=== PATIENT | female | born 1955 | race Caucasian/White ===

== ENCOUNTER 2016-04-20 18:15 | Inpatient (IN) | payer SELFPAY ==
[~2016-04-20] VITALS: Ht 162.6 cm; Wt 62.4 kg
[~2016-04-20 18:15] MED LIST: CYCL-36 PO; GABA800T PO; GLUC1000 PO; LISI-363 PO; METF500 PO; METF500T PO; METF850T PO; VENL75XR PO
[2016-04-20 18:20] VITALS: BP 146/83; PULSE 107; RESP 20; TEMP 98.7; O2SAT 93
--- NOTE | 2016-04-20 18:29 | PD ---
HPI Chief Complaint: weakness Time Seen by Provider: 18:29 Travel History International Travel<30 days: No Contact w/Intl Traveler<30days: No History of Present Illness HPI 60-year-old female with history of hypertension and untreated DM presents to the ED via EMS for evaluation after an episode of weakness and fall while shopping today. Blood glucose over 600 as reported by EMS. Patient states that that she is prescribed metformin, however she's been unable to afford it so she's been "hoarding it." States that her weakness is resolved on presentation. She denies headache, dizziness, chest pain, palpitations, abdominal pain, nausea, vomiting. She endorses urinary urgency and occasional urge incontinence. She denies back pain, weakness of the extremities. No primary care provider. [facility] Past Medical History Anxiety: No Depression: Yes Heart Rhythm Problems: No Cancer: No Cardiovascular Problems: Yes (HTN) Diabetes: Yes Dialysis: Yes Genitourinary: No Hypertension: Yes Musculoskeletal: No Neurologic: No Psychiatric: Yes Reproductive: No Respiratory: No Menopausal: Yes Past Surgical History Endocrine Surgery: Yes (lymph node removal) Other Surgery: Yes Social History Alcohol Use: No Tobacco Use: Yes Substance Use: No Allergies-Medications (Allergen,Severity, Reaction): Coded Allergies: No Known Allergies (Verified , 02/20/15) Reported Meds & Prescriptions Reported Meds & Active Scripts Active Reported Gabapentin 800 Mg Tab 800 Mg PO TID Gabapentin 800 Mg Tab 800 Mg PO TID Glucophage (Metformin HCl) 500 Mg Tab 500 Mg PO BIDPC With meals Review of Systems Except as stated in HPI: all other systems reviewed are Neg Physical Exam Narrative GENERAL: Well-nourished, well-developed white female in no acute distress. SKIN: Warm and dry. HEAD: Normocephalic. EYES: No scleral icterus. No injection or drainage. NECK: Supple, trachea midline. No JVD or lymphadenopathy. CARDIOVASCULAR: Regular rate and rhythm without murmurs, gallops, or rubs. 2+ DP and radial pulses bilaterally. RESPIRATORY: Breath sounds clear and equal bilaterally. No accessory muscle use. GASTROINTESTINAL: Abdomen soft, non-tender, nondistended. Active bowel sounds. MUSCULOSKELETAL: No cyanosis, or edema. Patient is observed to walk with a normal gait. NEUROLOGICAL: Awake and alert. Cranial nerves II through XII intact. Motor and sensory grossly within normal limits. Five out of 5 muscle strength in all muscle groups. Normal speech. BACK: Nontender without obvious deformity. No CVA tenderness. Data Data Last Documented VS Vital Signs Date Time Temp Pulse Resp B/P Pulse Ox O2 Delivery O2 Flow Rate FiO2 04/20/16 20:03 104 18 117/65 96 Room Air 04/20/16 18:20 98.7 Orders Complete Blood Count With Diff (04/20/16 18:40) Comprehensive Metabolic Panel (04/20/16 18:40) Act Partial Throm Time (Ptt) (04/20/16 18:40) Prothrombin Time / Inr (Pt) (04/20/16 18:40) Magnesium (Mg) (04/20/16 18:40) Ckmb (Isoenzyme) Profile (04/20/16 18:40) Troponin I (04/20/16 18:40) Arterial Blood Gas (Abg) (04/20/16 18:40) Urinalysis - C+S If Indicated (04/20/16 18:40) Iv Access Insert/Monitor (04/20/16 18:40) Electrocardiogram (04/20/16 18:40) Ecg Monitoring (04/20/16 18:40) Oximetry (04/20/16 18:40) Oxygen Administration (04/20/16 18:40) Chest, Single Ap (04/20/16 18:40) Sodium Chloride 0.9% Flush (Ns Flush) (04/20/16 18:45) Blood Glucose (04/20/16 18:40) Beta Hydroxybutyrate (Acetone) (04/20/16 18:40) Phosphorus (Po4) (04/20/16 18:40) Sodium Chlor 0.9% 1000 Ml Inj (Ns 1000 M (04/20/16 18:45) Hemoglobin (Hgb) A1c (04/20/16 18:43) Insulin Human Regular Inj (Novolin R Inj (04/20/16 20:00) Labs Laboratory Tests Test 04/20/16 04/20/16 18:40 19:00 White Blood Count 7.6 TH/MM3 Red Blood Count 4.00 MIL/MM3 Hemoglobin 13.3 GM/DL Hematocrit 40.1 % Mean Corpuscular Volume 100.4 FL Mean Corpuscular Hemoglobin 33.2 PG Mean Corpuscular Hemoglobin 33.1 % Concent Red Cell Distribution Width 13.0 % Platelet Count 245 TH/MM3 Mean Platelet Volume 8.8 FL Neutrophils (%) (Auto) 70.9 % Lymphocytes (%) (Auto) 22.0 % Monocytes (%) (Auto) 6.1 % Eosinophils (%) (Auto) 0.2 % Basophils (%) (Auto) 0.8 % Neutrophils # (Auto) 5.4 TH/MM3 Lymphocytes # (Auto) 1.7 TH/MM3 Monocytes # (Auto) 0.5 TH/MM3 Eosinophils # (Auto) 0.0 TH/MM3 Basophils # (Auto) 0.1 TH/MM3 CBC Comment DIFF FINAL Differential Comment Prothrombin Time 9.4 SEC Prothromb Time International 0.9 RATIO Ratio Activated Partial 25.4 SEC Thromboplast Time Sodium Level 130 MEQ/L Potassium Level 3.8 MEQ/L Chloride Level 91 MEQ/L Carbon Dioxide Level 22.8 MEQ/L Anion Gap 16 MEQ/L Blood Urea Nitrogen 15 MG/DL Creatinine 1.22 MG/DL Estimat Glomerular Filtration 45 ML/MIN Rate Random Glucose 642 MG/DL Calcium Level 8.1 MG/DL Phosphorus Level 3.2 MG/DL Magnesium Level 2.0 MG/DL Total Bilirubin 0.3 MG/DL Aspartate Amino Transf 23 U/L (AST/SGOT) Alanine Aminotransferase 20 U/L (ALT/SGPT) Alkaline Phosphatase 163 U/L Total Creatine Kinase 89 U/L Troponin I LESS THAN 0.02 NG/ML Total Protein 6.7 GM/DL Albumin 3.3 GM/DL B-Hydroxybutyrate 0.41 MMOL/L Urine Color LIGHT-YELLOW Urine Turbidity CLEAR Urine pH 5.0 Urine Specific [place] 1.024 Urine Protein NEG mg/dL Urine Glucose (UA) 1000 mg/dL Urine Ketones NEG mg/dL Urine Occult Blood NEG Urine Nitrite NEG Urine Bilirubin NEG Urine Urobilinogen LESS THAN 2.0 MG/DL Urine Leukocyte Esterase SMALL Urine RBC 2 /hpf Urine WBC 1 /hpf Urine Squamous Epithelial 1 /hpf Cells Microscopic Urinalysis Comment CULT NOT INDICATED MDM Medical Decision Making Medical Screen Exam Complete: Yes Emergency Medical Condition: Yes Differential Diagnosis Hyperglycemia versus DKA versus metabolic acidosis versus UTI versus electrolyte abnormality versus other Narrative Course 60-year-old female with history of hypertension and untreated DM presents to the ED via EMS for evaluation after an episode of weakness and fall while shopping today. Blood glucose over 600 as reported by EMS. Endorses urinary urgency and occasional urge incontinence. Patient denies headache, dizziness, chest pain, palpitations, abdominal pain, nausea, vomiting, back pain, weakness of the extremities. States that she does not have a PCP, has been "hoarding" her metformin. Patient was administered 1 L normal saline en route. Vitals reviewed. Pulse 104, respiratory rate 20, pulse ox 93% on room air on presentation. Physical exam reveals a nontoxic-appearing white female in no acute distress. No extra work of breathing. Chest clear to auscultation bilaterally. Abdomen soft, nontender. No edema in the lower extremities. IV was established. Patient was placed on continuous monitoring. She is administered a liter normal saline. CBC: WBC 7.6. Hemoglobin 13.3. INR 0.9. CMP: Sodium 1:30, chloride 99. Creatinine 1.22. Potassium 3.8. Glucose 642. Calcium 8.1. Anion gap 16 Beta Hydroxybutyrate: 0.41. Cardiac enzymes negative. UA no culture indicated ABG: Pending EKG rate 105, sinus tachycardia. ID interval 156, QRS 79, QTc 398. Normal axis. No ischemic changes. Reviewed by Dr. Bruner. Chest x-ray shows possible nodule in the left infrahilar region. CT recommended by radiology. Patient was administered 10 units of insulin IV. Recheck blood glucose ordered. She'll be admitted to the medicine service for further evaluation. Spoke with the patient regarding this plan and she is agreeable. I spoke to Dr. Cid who agrees to accept this medicine to the medicine service. Please medicine notes for disposition. Diagnosis Primary Impression: Hyperglycemia due to type 2 diabetes mellitus Qualified Code: E11.65 - Type 2 diabetes mellitus with hyperglycemia, without long-term current use of insulin Additional Impression: Pulmonary nodule Danni Espino Apr 20, 2016 18:29
[2016-04-20 18:30] VITALS: O2SAT 96
[2016-04-20] MEDS ORDERED: SODIUM CHLORIDE 0.9% FLUSH 5 ML FLUSH IVF PRN (18:45)
[2016-04-20] MEDS ORDERED: SODIUM CHLOR 0.9% 1000 ML INJ 1,000 ML IV ONE (18:45)
[2016-04-20] MEDS ORDERED: GABA800T PO ×2 (18:54→18:55)
[2016-04-20] MEDS ORDERED: VENL75XR PO (18:54)
[2016-04-20] MEDS ORDERED: METF500 PO (18:54)
[2016-04-20 19:02] LABS: AUTOMATED NEUTROPHIL # 5.4 TH/MM3 (1.8-7.7); BASOPHIL # 0.1 TH/MM3 (0-0.2); BASOPHIL % 0.8 % (0.0-2.0); EOSINOPHIL % 0.2 % (0.0-4.0); HEMATOCRIT 40.1 % (35.0-46.0); HEMO FLAGS DIFF FINAL; LYMPHOCYTE # 1.7 TH/MM3 (1.0-4.8); MEAN CELL VOLUME 100.4 FL (80.0-100.0); MEAN CORPUSCULAR HEMOGLOBIN 33.2 PG (27.0-34.0); MEAN CORPUSCULAR HGB CONC 33.1 % (32.0-36.0); MONO % 6.1 % (0.0-8.0); NEUT % 70.9 % (16.0-70.0); PLATELET COUNT 245 TH/MM3 (150-450); WHITE BLOOD COUNT 7.6 TH/MM3 (4.0-11.0)
[2016-04-20 19:16] LABS: APTT (PATIENT) 25.4 SEC (24.3-30.1); INTERNATIONAL NORMALIZED RATIO 0.9 RATIO; PROTHROMBIN TIME - PATIENT 9.4 SEC (9.8-11.6)
[2016-04-20 19:22] LABS: BLOOD, URINE NEG (NEG); GLUCOSE,URINE 1000 mg/dL (NEG); KETONE, URINE NEG (NEG); NITRITE,URINE NEG (NEG); SQUAMOUS EPITHELIAL CELL URINE 1 /hpf (0-5); URINE COLOR LIGHT-YELLOW (YELLW/STRAW)
[2016-04-20 19:24] LABS: COMMENT (UR) CULT NOT INDICATED; CULTURE IF INDICATED CULT NOT INDICATED
[2016-04-20 19:40] LABS: ALKALINE PHOSPHATASE 163 U/L (45-117); ALT (GPT) 20 U/L (10-53); ANION GAP 16 MEQ/L (5-15); AST (GOT) 23 U/L (15-37); BETA-HYDROXYBUTYRATE 0.41 MMOL/L (0.00-0.39); BICARBONATE 22.8 MEQ/L (21.0-32.0); BLOOD UREA NITROGEN 15 MG/DL (7-18); CHLORIDE 91 MEQ/L (98-107); CREATINE KINASE 89 U/L (26-192); GLOMERULAR FILTRATION RATE 45 ML/MIN (>89); POTASSIUM 3.8 MEQ/L (3.5-5.1); SODIUM (NA) 130 MEQ/L (136-145); TOTAL BILIRUBIN ADULT 0.3 MG/DL (0.2-1.0)
--- NOTE | 2016-04-20 19:58 | RADRPT ---
EXAM DATE/TIME: 04/20/2016 17:18 [place] COMPARISON: CT THORAX W/O CONTRAST, July 24, 2014, 22:59. INDICATIONS : Patient has been short of breath since yesterday. MEDICAL HISTORY : Diabetes mellitus type II. SURGICAL HISTORY : None. ENCOUNTER: Initial ACUITY: 1 day PAIN SCORE: 0/10 LOCATION: Bilateral chest FINDINGS: There is a possible nodule in the left infrahilar region. Further evaluation with noncontrast chest C T recommended. Calcified azygos lymph node noted. No effusion. Heart size normal. CONCLUSION: 1. Possible nodule left infrahilar region. Further evaluation with noncontrast chest CT recommended. Lucio Joseph MD on April 20, 2016 at 19:54 Board Certified Radiologist. This report was verified electronically.
[2016-04-20] MEDS ORDERED: INSULIN HUMAN REGULAR 1,000 UNITS/10 ML VIAL IV PUSH ONE (20:00)
[2016-04-20 20:03] VITALS: BP 117/65; PULSE 104; RESP 18; O2SAT 96
[2016-04-20 21:04] VITALS: BP 111/67; PULSE 108; RESP 18; O2SAT 97
[2016-04-20 22:04] LABS: HEMOGLOBIN A1a 1.9 %; HEMOGLOBIN A1b 1.2 %; HEMOGLOBIN F 2.5 %
[2016-04-20 22:05] LABS: HEMOGLOBIN Ao 70.3 %; HEMOGLOBIN LA1C 5.6 %; HEMOGLOBIN P3 6.4 %
[2016-04-20] MEDS ORDERED: SODIUM CHLOR 0.9% 1000 ML INJ 1,000 ML IV SCH (22:57)
[2016-04-20] MEDS ORDERED: DEXT 5%-NACL 0.9% 1000 ML INJ 1,000 ML IV SCH (22:57)
[2016-04-20] MEDS ORDERED: MISCELLANEOUS NURSING INFORMATION XX SCH (23:00)
[2016-04-20] MEDS ORDERED: NALOXONE HCL 0.4 MG/ML AMP IV PRN (23:00)
[2016-04-20] MEDS ORDERED: INSULIN REGULAR (IV INFUSION) 100 UNITS in SODIUM CHLORIDE 0.9% INJ 99 ML IV SCH (23:00)
[2016-04-20] MEDS ORDERED: POTASSIUM CHLOR 20 MEQ PREMIX 100 ML IV PRN ×6 (23:00)
[2016-04-20] MEDS ORDERED: ACETAMINOPHEN 325 MG TAB PO PRN (23:00)
[2016-04-20] MEDS ORDERED: SENNOSIDES 8.6 MG TAB PO PRN (23:00)
[2016-04-20] MEDS ORDERED: POTASSIUM CHLOR 40 MEQ PREMIX 100 ML IV PRN ×2 (23:00)
[2016-04-20] MEDS ORDERED: ONDANSETRON HCL 4 MG/2 ML VIAL IVP PRN (23:00)
[2016-04-20] MEDS ORDERED: SODIUM BICARBONATE 8.4% SOLN 50 MEQ/50 ML VIAL IV PRN ×2 (23:00)
[2016-04-20] MEDS ORDERED: CHLORHEXIDINE GLUCONATE 2 % 1 PACK (2 CLOTHS) TOP PRN (23:00)
[2016-04-20] MEDS ORDERED: SODIUM CHLORIDE 0.9% FLUSH 5 ML FLUSH FLUSH PRN (23:00)
[2016-04-20] MEDS ORDERED: SODIUM PHOSPHATE INJ 15 MMOL in SODIUM CHLORIDE 0.9% INJ 100 ML IV PRN (23:00)
[2016-04-21] VITALS (10 sets, daily range): BP systolic 131–176; BP diastolic 63–92; PULSE 75–98; RESP 16–20; TEMP 97.7–98.7; O2SAT 92–98
[2016-04-21] MEDS: ENOXAPARIN SODIUM 40 MG/0.4 ML SYRINGE SQ SCH ×2 (00:01→22:22)
--- NOTE | 2016-04-21 00:45 | HHI.HP ---
[facility] Service [place] [facility] Primary Care Physician Bobo Guajardo MD Admission Diagnosis hyperglycemia, pulmonary nodule Diagnoses: (1) Type 2 diabetes mellitus (2) Diabetic ketoacidosis (3) Suicidal ideation (4) Neuropathy (5) Hypertension Chief Complaint: Weakness Travel History International Travel<30 Days: No Contact w/Intl Traveler <30 Da: No Traveled to Known Affected Are: No History of Present Illness Ms. Plasencia is a 60-year-old female with a past medical history of hypertension and type 2 diabetes mellitus who presented to the hospital complaining of weakness since this morning. She stated that she has been sober for 2 weeks and began drinking alcohol this morning again. She states her surgery has been "out of whack" since February 2016. She was taking her medications on and off. She states that she sees Dr. Guajardo (last visit in EMR is 11/28/2014). She denies nausea, chest pain, abdominal pain, but reports a little bit of nausea without vomiting. She was able to eat today at [facility]. She reports getting very lightheaded and having some feet cramps along with excessive thirst. She denies diarrhea, fever, chills. She reports cough but no worse than usual. She reports that she tends to have suicidal thoughts when she is off antidepressants; she is currently off antidepressants; she denies having a suicidal plan. She reports financial constraints causing her to be unable to afford her medications. Review of Systems Constitutional: COMPLAINS OF: Dizziness, DENIES: Fever Endocrine: COMPLAINS OF: Polydipsia, Polyuria Ears, nose, mouth, throat: DENIES: Nasal discharge, Throat pain Respiratory: COMPLAINS OF: Cough, DENIES: Shortness of breath Cardiovascular: DENIES: Chest pain, Lower Extremity Edema Gastrointestinal: COMPLAINS OF: Nausea, DENIES: Abdominal pain, Vomiting Genitourinary: DENIES: Hematuria, Dysuria Musculoskeletal: COMPLAINS OF: Muscle aches, DENIES: Stiffness Neurologic: COMPLAINS OF: Seizures, DENIES: Localized weakness Psychiatric: COMPLAINS OF: Anxiety, Depression Past Family Social History Past Medical History Hypertension T2DM Neuropathy Anxiety Depression . Past Surgical History Denies surgeries . Reported Medications Reported Meds & Active Scripts Active Reported Gabapentin 800 Mg Tab 800 Mg PO TID Glucophage (Metformin HCl) 500 Mg Tab 500 Mg PO BIDPC With meals . Allergies: Coded Allergies: No Known Allergies (Verified , 02/20/15) Active Ordered Medications Current Medications IV Flush 2 ml 2 ml UNSCH PRN IVF FLUSH AFTER USING IV ACCESS; Start 04/20/16 at 18:45 Sodium Chloride (NS 1000 ml Inj) 1,000 ml @ 999 mls/hr BOLUS ONCE IV Last administered on 04/20/16 19:23; Start 04/20/16 at 18:45; Stop 04/20/16 at 19:45; Status DC Insulin Human Regular (NovoLIN R INJ) 10 units ONCE ONCE IV PUSH Last administered on 04/20/16 20:02; Start 04/20/16 at 20:00; Stop 04/20/16 at 20:01; Status DC IV Flush (NS Flush) 2 ml UNSCH PRN FLUSH FLUSH AFTER USING IV ACCESS; Start 04/20/16 at 23:00 IV Flush (NS Flush) 2 ml BID FLUSH ; Start 04/21/16 at 09:00 Acetaminophen (Tylenol) 650 mg Q4H PRN PO TEMP > 100.4; Start 04/20/16 at 23:00 Ondansetron HCl (Zofran Inj) 4 mg Q6H PRN IVP NAUSEA OR VOMITING; Start at 23:00 Sennosides (Senokot) 17.2 mg Q12H PRN PO CONSTIPATION; Start 04/20/16 at 23:00 Enoxaparin Sodium (Lovenox Inj) 40 mg Q24H SQ Last administered on 04/21/16 00: 01; Start 04/20/16 at 23:00 Naloxone HCl 0.4 mg 0.4 mg UNSCH PRN IV SEE LABEL COMMENTS; Start 04/20/16 at 23 :00 Sodium Chloride 1,000 ml @ 250 mls/hr Q4H IV Last administered on 04/21/16 00: 01; Start 04/20/16 at 22:57 Dextrose/Sodium Chloride 1,000 ml @ 200 mls/hr Q5H IV ; Start 04/20/16 at 22:57 Insulin Human Regular 100 units/ Sodium Chloride 100 ml @ 0 mls/hr TITRATE IV Last administered on 04/21/16t 00:01; Start 04/20/16 at 23:00 Potassium Chloride 100 ml @ 100 mls/hr Q1H PRN IV SEE LABEL COMMENTS; Start at 23:00 Potassium Chloride 100 ml @ 50 mls/hr Q2H PRN IV SEE LABEL COMMENTS; Start 04/20/16 at 23:00 Potassium Chloride 100 ml @ 100 mls/hr Q1H PRN IV SEE LABEL COMMENTS; Start at 23:00 Potassium Chloride 100 ml @ 100 mls/hr Q1H PRN IV SEE LABEL COMMENTS; Start at 23:00 Potassium Chloride 100 ml @ 50 mls/hr Q2H PRN IV SEE LABEL COMMENTS; Start 04/20/16 at 23:00 Potassium Chloride 100 ml @ 50 mls/hr Q2H PRN IV SEE LABEL COMMENTS; Start 04/20/16 at 23:00 Potassium Chloride 100 ml @ 50 mls/hr Q2H PRN IV SEE LABEL COMMENTS; Start 04/20/16 at 23:00 Potassium Chloride (KCl 20 Meq Premix Inj) 100 ml @ 50 mls/hr Q2H PRN IV SEE LABEL COMMENTS; Start 04/20/16 at 23:00 Sodium Bicarbonate (Sodium Bicarbonate 8.4% Inj) 100 meq UNSCH PRN IV SEE LABEL COMMENTS; Start 04/20/16 at 23:00 Sodium Bicarbonate 50 meq 50 meq UNSCH PRN IV SEE LABEL COMMENTS; Start at 23:00 Sodium Phosphate/ Sodium Chloride (Sodium Phosphate Inj/NS Inj) 105 ml @ 25 mls /hr UNSCH PRN IV SEE LABEL COMMENTS; Start 04/20/16 at 23:00 Miscellaneous Information 1 [id number] XX ; Start 04/20/16 at 23:00 Chlorhexidine Gluconate (Chlorhexidine 2% Cloth) 3 pack Taper DAILY@04 TOP ; Start 04/21/16 at 04:00; Stop 04/17/17 at 03:59 Chlorhexidine Gluconate (Chlorhexidine 2% Cloth) 3 pack UNSCH PRN TOP HYGIENIC CARE; Start 04/20/16 at 23:00 Gabapentin (Neurontin) 800 mg TID PO ; Start 04/21/16 at 09:00 . Family History Father age 42 from [place] - heavy smoker Mother age 92 . Social History Tobacco: 1 PPD Alcohol: history of alcohol abuse; sober x 2 weeks before today Physical Exam Vital Signs Vital Signs Date Time Temp Pulse Resp B/P Pulse Ox O2 Delivery O2 Flow Rate FiO2 04/21/16 00:02 98 16 131/72 98 Room Air 04/20/16 21:04 108 18 111/67 97 Room Air 04/20/16 20:03 104 18 117/65 96 Room Air 04/20/16 18:39 Room Air 04/20/16 18:30 96 04/20/16 18:30 96 04/20/16 18:20 98.7 107 20 146/83 93 Physical Exam GENERAL: This is a pleasant, cooperative patient, in no apparent distress. SKIN: No rashes, ecchymoses or lesions. Cool and dry. HEAD: Atraumatic. Normocephalic. EYES: Pupils equal round and reactive. No scleral icterus. No injection or drainage. ENT: Nose without bleeding, purulent drainage. Airway patent. NECK: Trachea midline. No JVD or lymphadenopathy. Supple, nontender, no meningeal signs. CARDIOVASCULAR: Regular rate and rhythm without murmurs, gallops, or rubs. RESPIRATORY: Clear to auscultation. Breath sounds equal bilaterally. No wheezes , rales, or rhonchi. GASTROINTESTINAL: Abdomen soft, non-tender, nondistended. No guarding. MUSCULOSKELETAL: Extremities without clubbing, cyanosis, or edema. No calf tenderness. NEUROLOGICAL: Awake and alert. Motor and sensory grossly within normal limits. Normal speech. Laboratory Laboratory Tests Test 04/20/16 04/20/16 18:40 19:00 White Blood Count 7.6 Red Blood Count 4.00 Hemoglobin 13.3 Hematocrit 40.1 Mean Corpuscular Volume 100.4 Mean Corpuscular Hemoglobin 33.2 Mean Corpuscular Hemoglobin 33.1 Concent Red Cell Distribution Width 13.0 Platelet Count 245 Mean Platelet Volume 8.8 Neutrophils (%) (Auto) 70.9 Lymphocytes (%) (Auto) 22.0 Monocytes (%) (Auto) 6.1 Eosinophils (%) (Auto) 0.2 Basophils (%) (Auto) 0.8 Neutrophils # (Auto) 5.4 Lymphocytes # (Auto) 1.7 Monocytes # (Auto) 0.5 Eosinophils # (Auto) 0.0 Basophils # (Auto) 0.1 CBC Comment DIFF FINAL Differential Comment Prothrombin Time 9.4 Prothromb Time International 0.9 Ratio Activated Partial 25.4 Thromboplast Time Sodium Level 130 Potassium Level 3.8 Chloride Level 91 Carbon Dioxide Level 22.8 Anion Gap 16 Blood Urea Nitrogen 15 Creatinine 1.22 Estimat Glomerular Filtration 45 Rate Random Glucose 642 Hemoglobin A1c 12.2 Calcium Level 8.1 Phosphorus Level 3.2 Magnesium Level 2.0 Total Bilirubin 0.3 Aspartate Amino Transf 23 (AST/SGOT) Alanine Aminotransferase 20 (ALT/SGPT) Alkaline Phosphatase 163 Total Creatine Kinase 89 Troponin I LESS THAN 0.02 Total Protein 6.7 Albumin 3.3 B-Hydroxybutyrate 0.41 Urine Color LIGHT-YELLOW Urine Turbidity CLEAR Urine pH 5.0 Urine Specific [place] 1.024 Urine Protein NEG Urine Glucose (UA) 1000 Urine Ketones NEG Urine Occult Blood NEG Urine Nitrite NEG Urine Bilirubin NEG Urine Urobilinogen LESS THAN 2.0 Urine Leukocyte Esterase SMALL Urine RBC 2 Urine WBC 1 Urine Squamous Epithelial 1 Cells Microscopic Urinalysis Comment CULT NOT INDICATED Result Diagram: 04/20/16183904/20/161839 Imaging Last Impressions Chest X-Ray 04/20/161839 Signed Impressions: Service Date/Time: Wednesday, April 20, 2016 17:18 - CONCLUSION: 1. Possible nodule left infrahilar region. Further evaluation with noncontrast chest CT recommended. Lucio Joseph MD . Assessment and Plan Problem List: (1) Diabetic ketoacidosis ICD Code: E13.10 Status: Acute (2) Type 2 diabetes mellitus ICD Code: E11.9 Status: Chronic (3) Suicidal ideation ICD Code: R45.851 Status: Acute (4) Neuropathy ICD Code: G62.9 Status: Chronic (5) Hypertension ICD Code: I10 Status: Chronic Assessment and Plan T2DM DKA - Initially started on an insulin drip the patient's blood sugar quickly corrected and anion gap closed - Accu-Cheks before meals and at bedtime with low-dose sliding scale coverage - Hold metformin for now in case contrast images needed - Monitor trends in blood glucose levels and adjust medications accordingly - Hypoglycemia protocol ordered Suicidal Ideation - Sitter at bedside - Consult psychiatry Neuropathy - will need to verify Gabapentin dose - if she is not able to afford medications ; it is unlikely that she is taking this medicine currently Hypertension - Enalapril 1.25 mg IV q6h PRN BP > 160/100 - monitor bp reading - Adjust medications as indicated Written by Brunilda Cuba, acting as scribe for Dr. Cid on 04/21/16 at 00:45. The documentation accurately reflects the work performed [id number] by me on 04/21/16 at 00:45. Discussed Condition With patient, ER physician Physician Certification 2 Midnight Certification Type: Admission for Inpatient Services Order for Inpatient Services The services are ordered in accordance with Medicare regulations or non- Medicare payer requirements, as applicable. In the case of services not specified as inpatient-only, they are appropriately provided as inpatient services in accordance with the 2-midnight benchmark. Estimated LOS (days): 3 days is the estimated time the patient will need to remain in the hospital, assuming treatment plan goals are met and no additional complications. Post-Hospital Plan: Home Problem Qualifiers (1) Diabetic ketoacidosis: Brunilda Cuba Apr 21, 2016 00:45 Tre Novoa MD Apr 27, 2016 23:14
[2016-04-21] MEDS ORDERED: GLUCAGON 1 MG/ML VIAL OTHER PRN (03:00)
[2016-04-21] MEDS ORDERED: DEXTROSE 50% IN WATER 50 ML VIAL(D50) IV PUSH PRN (03:00)
[2016-04-21] MEDS ORDERED: CHLORHEXIDINE GLUCONATE 2 % 1 PACK (2 CLOTHS) TOP SCH (04:00)
--- NOTE | 2016-04-21 04:57 | EKG ---
Date Performed: 04/20/2016 Time Performed: 19:30:15 PTAGE: 60 years EKG: SINUS TACHYCARDIA ABNORMAL RHYTHM ECG COMPARED TO PRIOR ELECTROCARDIOGRAM, Rate has increas ed. PREVIOUS TRACING : 07/24/2014 14.43 DOCTOR: Malcolm Elizabeth Interpretating Date/Time 04/21/2016 04:56:20
[2016-04-21 05:18] LABS: AUTOMATED NEUTROPHIL # 4.4 TH/MM3 (1.8-7.7); BASOPHIL % 0.5 % (0.0-2.0); EOSINOPHIL # 0.1 TH/MM3 (0-0.4); EOSINOPHIL % 0.7 % (0.0-4.0); HEMO FLAGS DIFF FINAL; LYMPH % 29.8 % (9.0-44.0); LYMPHOCYTE # 2.1 TH/MM3 (1.0-4.8); MEAN CELL VOLUME 96.8 FL (80.0-100.0); MEAN CORPUSCULAR HEMOGLOBIN 33.2 PG (27.0-34.0); MEAN CORPUSCULAR HGB CONC 34.3 % (32.0-36.0); MONO % 7.4 % (0.0-8.0); NEUT % 61.6 % (16.0-70.0); PLATELET COUNT 182 TH/MM3 (150-450); RED BLOOD COUNT 3.52 MIL/MM3 (4.00-5.30); RED CELL DISTRIBUTION WIDTH 12.8 % (11.6-17.2); WHITE BLOOD COUNT 7.2 TH/MM3 (4.0-11.0)
[2016-04-21 05:55] LABS: BETA-HYDROXYBUTYRATE 1.7 MMOL/L (0.00-0.39); BICARBONATE 26.6 MEQ/L (21.0-32.0); MAGNESIUM 1.7 MG/DL (1.5-2.5); POTASSIUM 3.9 MEQ/L (3.5-5.1)
[2016-04-21] MEDS: INSULIN ASPART SUPPLEMENTAL SCALE SQ SCH ×4 (06:15→22:23)
[2016-04-21] MEDS ORDERED: GABAPENTIN 400 MG CAP PO SCH ×2 (09:00)
[2016-04-21] MEDS ORDERED: GABAPENTIN 300 MG CAP PO SCH (09:00)
[2016-04-21] MEDS ORDERED: ENALAPRILAT 1.25 MG/ML VIAL IV PRN (09:00)
[2016-04-21] MEDS ORDERED: LORazepam 2 MG/ML VIAL IV PUSH PRN ×4 (10:00)
[2016-04-21] MEDS ORDERED: LORazepam 1 MG TAB PO PRN (10:00)
[2016-04-21] MEDS ORDERED: LORazepam 2 MG TAB PO PRN (10:00)
[2016-04-21] MEDS ORDERED: FLUMAZENIL 0.5 MG/5 ML VIAL IV PUSH PRN (10:00)
[2016-04-21] MEDS: SODIUM CHLORIDE 0.9% FLUSH 5 ML FLUSH FLUSH SCH ×2 (11:12→22:22)
[2016-04-21] MEDS: VENLAFAXINE HCL XR 75 MG CAP PO SCH (11:12)
--- NOTE | 2016-04-21 12:35 | HHI.PR ---
Addendum to Inpatient Note Addendum Reason: Additional Documentation Additional Information Ms Plasencia is feeling physically better this am and her glucose levels are better as well. She has "been going downhill" over the past year and especially over the past few months. She has a history of DM, depression and alcohol binges and lost her Insurance so she could not afford her clinic visits and was unable to refill her antidepressant for the past month as well as her metformin and gabapentin. She is more and more depressed and "doesn't care about anything". She stated she was on a 2 day binge from Monday to Monday when she was admitted. She reported drinking about a pint of vodka and that she is not a heavy daily drinker but binges for 2-3 days every few weeks. She has noticed her overall glucose control worsening though she does not check her glucoses at home. She reports worsening numbness in her feet and that she was walking yesterday when she fell though she denies loss of consciousness. She was intoxicated at the time. She denies a past history of alcohol withdrawal seizures but has had some withdrawal sxs in the past of morning shakiness and has taken an "eyeopener" of a morning drink at times. She does report polyuria and polydipsia as well. When she presented to the ED, she was found to have elevated glucose of over 600 and a positive beta hydroxybutyrate. She was diagnosed with DKA and sent to the ICU. However, after a liter bolus of fluid, and a little insulin she had a rapid decline in her glucose to what is probably her normal of 200s. (Her HbA1C is over 12.) She is complaining of depression because she has no Effexor. She wishes to be out of the ICU as she feels better today. She denies any pain or localized sxs from her fall suggestive of a fracture or other injury. agree with exam of H&P per hospitalist. Pt transferred to FP service as Dr Guajardo is her primary care Jelena Colunga MD Apr 21, 2016 12:35
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
[2016-04-21] MEDS ORDERED: traZODone HCL 50 MG TAB PO SCH (21:00)
[2016-04-22 00:18] VITALS: BP 133/73; PULSE 62; RESP 16; TEMP 97.2; O2SAT 99
[2016-04-22 05:30] VITALS: BP 154/90; PULSE 63; RESP 16; TEMP 99.5; O2SAT 97
[2016-04-22] MEDS: INSULIN ASPART SUPPLEMENTAL SCALE SQ SCH (06:13)
[2016-04-22 08:00] VITALS: BP 113/68; PULSE 79; RESP 18; TEMP 97.4; O2SAT 96
[2016-04-22 08:24] LABS: HEMATOCRIT 37.1 % (35.0-46.0); MEAN CELL VOLUME 95.3 FL (80.0-100.0); MEAN CORPUSCULAR HEMOGLOBIN 32.9 PG (27.0-34.0); MEAN CORPUSCULAR HGB CONC 34.5 % (32.0-36.0); PLATELET COUNT 187 TH/MM3 (150-450); RED BLOOD COUNT 3.89 MIL/MM3 (4.00-5.30); RED CELL DISTRIBUTION WIDTH 12.7 % (11.6-17.2); REVIEW FLAG FINAL; WHITE BLOOD COUNT 4.4 TH/MM3 (4.0-11.0)
[2016-04-22 08:48] LABS: ALT (GPT) 17 U/L (10-53); ANION GAP 8 MEQ/L (5-15); AST (GOT) 15 U/L (15-37); BICARBONATE 27.3 MEQ/L (21.0-32.0); BLOOD UREA NITROGEN 12 MG/DL (7-18); CHLORIDE 101 MEQ/L (98-107); GLOMERULAR FILTRATION RATE 87 ML/MIN (>89); POTASSIUM 3.6 MEQ/L (3.5-5.1); SODIUM (NA) 136 MEQ/L (136-145)
[2016-04-22 08:49] LABS: ALKALINE PHOSPHATASE 106 U/L (45-117); TOTAL BILIRUBIN ADULT 0.5 MG/DL (0.2-1.0)
[2016-04-22] MEDS ORDERED: METF500 PO (09:14)
[2016-04-22] MEDS ORDERED: TRAZ50TA12 PO (09:14)
[2016-04-22] MEDS ORDERED: VENL75XR PO (09:14)
[2016-04-22] MEDS ORDERED: LEVEMIR SQ (09:14)
[2016-04-22] MEDS ORDERED: BLOOD GLUCOSE T1 TES (09:16)
[2016-04-22] MEDS ORDERED: BLOOD GLUCOSE M1 KIT (09:16)
[2016-04-22] MEDS: VENLAFAXINE HCL XR 75 MG CAP PO SCH (09:35)
[2016-04-22] MEDS: SODIUM CHLORIDE 0.9% FLUSH 5 ML FLUSH FLUSH SCH (09:36)
[2016-04-22] MEDS ORDERED: INSULIN DETEMIR 100 UNITS/ML VIAL SQ SCH (10:00)
--- NOTE | 2016-04-22 11:18 | HHI.FPPN ---
Subjective Remarks Patient seen and examined. No acute events overnight. VSSAF. Patient denies any complaints this morning. Had a good night's sleep with Trazadone. Mood has improved. Denies SI/HI. As for her BG, it still ranges from 213-346 overnight. She received 17 units of SSI. Serum glucose is 160 this morning. Denies abdominal pain, nausea, vomiting, or other complaints. Tolerating diet. (Iram Santiago MD R3) Objective Vitals Vital Signs Date Time Temp Pulse Resp B/P Pulse Ox O2 Delivery O2 Flow Rate FiO2 04/22/16 08:00 97.4 79 18 113/68 96 04/22/16 05:30 99.5 63 16 154/90 97 04/22/16 00:18 97.2 62 16 133/73 99 04/21/16 21:21 97.7 79 16 168/92 97 04/21/16 15:54 98.7 84 16 176/89 98 04/21/16 12:00 86 I/O 04/21/16 04/21/16 04/21/16 04/22/16 04/22/16 04/22/16 07:00 15:00 23:00 07:00 15:00 23:00 Intake Total 0 ml 240 ml Balance 0 ml 240 ml Intake Oral 0 ml 240 ml # Voids 1 3 # Bowel Movements 0 0 (Iram Santiago MD R3) Result Diagram: 04/22/16 0735 04/22/16 0735 Imaging Last Impressions Chest X-Ray 04/20/16 1840 Signed Impressions: Service Date/Time: Wednesday, April 20, 2016 17:18 - CONCLUSION: 1. Possible nodule left infrahilar region. Further evaluation with noncontrast chest CT recommended. Lucio Joseph MD Objective Remarks GENERAL: This is a pleasant, cooperative patient, in no apparent distress. SKIN: No rashes, ecchymoses or lesions. Cool and dry. HEAD: Atraumatic. Normocephalic. EYES: Pupils equal round and reactive. No scleral icterus. No injection or drainage. ENT: Nose without bleeding, purulent drainage. Airway patent. NECK: Trachea midline. No lymphadenopathy. Supple CARDIOVASCULAR: Regular rate and rhythm without murmurs, gallops, or rubs. RESPIRATORY: Clear to auscultation. Breath sounds equal bilaterally. No wheezes , rales, or rhonchi. GASTROINTESTINAL: Abdomen soft, non-tender, nondistended. No guarding. Active bowel sounds MUSCULOSKELETAL: Extremities without clubbing, cyanosis, or edema. No calf tenderness. NEUROLOGICAL: Awake and alert. Motor and sensory grossly within normal limits. Normal speech. PSYCH: Seems less depressed today. Not tearful. Smiles during conversation. Affect appropriate. (Iram Santiago MD R3) A/P Assessment and Plan Ms. Plasencia is a 60-year-old female with a past medical history of hypertension and uncontrolled type 2 diabetes mellitus who was admitted for hyperglycemia ( DKA vs. HHS) and Morales acted for suicidal ideation. Blood glucose has improved during hospitalization. Electrolytes are WNL. Will start basal insulin for sugar control. Psychiatry was consulted and recommended resuming Effexor and adding Trazodone for her depression. Mood is improved with that regimen. Denies SI/HI. Morales act lifted per psych. Patient is clinically stable and is ready for discharge home. Discharge Planning Clinically stable. Will discharge home today. Patient does not have insurance and will need close follow up for her diabetes and depression. CM is on board to assist with discharge planning (patient's assistance with medications and f/ u at community clinic) d/w Dr. Gracia (Iram Santiago MD R3) Attending Attestation Patient seen and examined. Case reviewed and discussed with the resident team. Agree with plan of care as discussed with me and documented in the resident note. pt eager to go home. feels she learned so much from her diabetic teaching ! (Basil,Jelena Henley MD) Problem List: (1) Hyperglycemia due to type 2 diabetes mellitus Status: Acute Plan: Patient admitted for hyperglycemia with BG of 642, anion gap 16. Beta hydroxybutyrate were 0.41 and 1.70. ABG ordered but was cancelled. HbA1c 12.2. UA with elevated glucose but negative ketones. She was given Novolin 10 units and started on DKA protocol in ED. Blood glucose improved and anion gap resolved so she was transitioned to subQ insulin soon after admission. Overnight, she BG ranged from 213-346. She received 17 units of SSI. Electrolytes are WNL this morning. -Will start Levemir 5 units QHS. -Resume Metformin 1000 units BID upon discharge -row boss and mental health aide consulted. -Diabetic diet -F/U with Dr. Gómez as outpatient for diabetes management (2) Depression Status: Acute Plan: Mood more stable after resuming Effexor 75mg po daily. Psychiatrist consulted and recommended adding Trazodone 50mg po QHS to help with depression and insomnia. Patient tolerating medications without adverse effects. Denies S/ HI. -Continue antidepressants. -F/U with psych as outpatient. Titrate as necessary (3) Neuropathy Status: Chronic Plan: Continue home dose of Gabapentin (4) EDUARDO (acute kidney injury) Status: Resolved Plan: Initial creatinine on admission 1.22 but resolved s/p IVF. (5) Nutrition, metabolism, and development symptoms Status: Acute Plan: Diet: Diabetic diet Fluid: HLIV Electrolytes: WNL. (Iram Santiago MD R3) Problem Qualifiers (1) Hyperglycemia due to type 2 diabetes mellitus: Qualified Code: E11.65 - Type 2 diabetes mellitus with hyperglycemia, without long-term current use of insulin Iram Santiago MD R3 Apr 22, 2016 11:18 Jelena Gracia MD Apr 22, 2016 14:09
[2016-05-03] MEDS ORDERED: TRAZ50TA12 PO (11:30)
[2016-05-03] MEDS ORDERED: LEVEMIR SQ (11:30)
[2016-05-03] MEDS ORDERED: METF500 PO (11:30)
[2016-05-03] MEDS ORDERED: GABA800T PO (11:30)
[2016-05-03] MEDS ORDERED: VENL75XR PO (11:30)
== END 2016-04-22 11:18 | disposition home or self-care (01) | DRG 638 ==
LOC: NEPE 18:15 → NEDA 20:57 → HIMW 04-21 02:05 → N05A 04-21 13:57
PROVIDERS: ADMIT Family Medicine; ATTEND Family Medicine
DX: E13.10 Other specified diabetes mellitus with ketoacidosis without coma (principal); N17.9 Acute kidney failure, unspecified; F10.14 Alcohol abuse with alcohol-induced mood disorder; G62.9 Polyneuropathy, unspecified; I10 Essential (primary) hypertension; N39.41 Urge incontinence; F41.8 Other specified anxiety disorders; Z62.810 Personal history of physical and sexual abuse in childhood; Z72.0 Tobacco use; W19.XXXA Unspecified fall, initial encounter; Y92.481 Parking lot as the place of occurrence of the external cause
CPT/HCPCS: 71010; 80048; 80053; 81001; 82010; 82550; 82607; 82746; 82948; 83036; 83735; 84100; 84425; 84484; 85025; 85027; 85610; 85730; 87641; 93005; 96374; 96375; J1650; J1815; J1817; J3480; J7030; J7042